=== PATIENT | female | born 1960 | race Asian ===

== ENCOUNTER 2018-03-09 22:14 | Emergency (ER) | payer MEDICAID ==
[~2018-03-09] VITALS: Ht 157.5 cm; Wt 76.2 kg
[2018-03-09 22:45] VITALS: Ht 157.5 cm; Wt 76.2 kg
[2018-03-10 01:08] VITALS: BP 151/71
== END 2018-03-10 01:09 | disposition home or self-care (01) ==
LOC: EDBD 22:14 → ED 22:14
DX: T16.2XXA Foreign body in left ear, initial encounter (principal); J45.909 Unspecified asthma, uncomplicated; I10 Essential (primary) hypertension; X58.XXXA Exposure to other specified factors, initial encounter; Y93.89 Activity, other specified; Y92.89 Other specified places as the place of occurrence of the external cause; Y99.8 Other external cause status